=== PATIENT | male | born 1995 | race Caucasian/White ===

== ENCOUNTER 2021-04-06 21:40 | Emergency (ER) | payer OTHER ==
[2021-04-06] MEDS ORDERED: IBUPROFEN600 MG PO (23:47)
[2021-04-06] MEDS ORDERED: BACTROBAN OINT22 GM EXT (23:47)
== END 2021-04-07 00:05 | disposition home or self-care (01) ==
LOC: ER1 21:40
DX: S61.411A Laceration without foreign body of right hand, initial encounter (principal); W26.8XXA Contact with other sharp object(s), not elsewhere classified, initial encounter
CPT/HCPCS: 12001; 99283